=== PATIENT | female | born 1945 | race Caucasian/White ===

== ENCOUNTER 2025-02-05 14:31 | Emergency (ER) | payer OTHER, MEDICAID ==
[~2025-02-05] VITALS: Ht 167.6 cm; Wt 95.0 kg
[~2025-02-05 14:31] MED LIST: ALBU4TAB6 PO; AMLO10TA80 PO; APIX5TAB PO; ATOR-388 MT; BENZ100C86 PO; FURO40TA5 PO; GABA-290 MT; HYDR25TA78 PO; NORT50CA PO; OMEG-221 MT; OMEP20CA14 PO; POTA-205 MT; SITA1TAB6 PO; TELM80TA8 PO; TRAZ-251 PO
[2025-02-05 14:45] VITALS: O2SAT 98
[2025-02-05] MEDS: KETOROLAC 15MG/ML VIAL IV ONE (15:18)
[2025-02-05] MEDS: METOCLOPRAMIDE HCL 10MG/2ML VIAL IV ONE (15:19)
[2025-02-05] MEDS: FAMOTIDINE 20MG/2ML VIAL IV ONE (15:19)
[2025-02-05] MEDS: SODIUM CHLORIDE 0.9% 1,000 ML IV ONE (15:19)
[2025-02-05 15:25] LABS: BASOPHILS % 1.0 % (0.0-2.0); EOSINOPHILS % 1.2 % (0.0-5.0); HEMATOCRIT. 33.9 % (36.0-48.0); HEMOGLOBIN. 10.9 g/dL (12.0-16.0); LYMPHOCYTES % 33.9 % (20.0-50.0); MEAN PLATELET VOLUME 7.6 fl (7.4-10.4); MONOCYTES % 10.5 % (2.0-8.0); NEUTROPHILS % 53.4 % (40.0-76.0); PLATELET 326 x1000/uL (130-400); RED BLOOD CELL COUNT 3.91 mill/uL (4.2-5.4); RED CELL DISTRIBUTION WIDTH 14.9 % (11.6-14.6)
[2025-02-05 15:31] LABS: UREA NITROGEN BLOOD 27 mg/dL (9-23)
[2025-02-05 15:32] LABS: ASPARTATE AMINOTRANSFERASE 26 IU/L (<34); TROPONIN I HIGH SENSITIVITY 16 ng/L (3.0-34)
[2025-02-05 15:33] LABS: BILIRUBIN DIRECT < 0.1 mg/dL (<=3.0); BILIRUBIN TOTAL 0.2 mg/dL (0.1-1.0); PROTEIN TOTAL 7.1 g/dL (6.0-8.3)
[2025-02-05 15:44] LABS: CREATININE 1.8 mg/dL (0.6-1.0)
[2025-02-05 19:10] VITALS: BP 117/45; PULSE 83; RESP 16; TEMP 37; O2SAT 96
== END 2025-02-05 19:27 | disposition short-term general hospital (02) ==
LOC: ER 14:31
DX: I95.89 Other hypotension (principal); E05.90 Thyrotoxicosis, unspecified without thyrotoxic crisis or storm; E11.9 Type 2 diabetes mellitus without complications; I10 Essential (primary) hypertension; I48.91 Unspecified atrial fibrillation; Z79.01 Long term (current) use of anticoagulants; Z79.84 Long term (current) use of oral hypoglycemic drugs; Z79.899 Other long term (current) drug therapy; Z90.710 Acquired absence of both cervix and uterus
CPT/HCPCS: 99291; 74176; 96374; 96375; 96361; 80076; 80048; 83690; 85025; 84484; 36415; J1885; J1308; J2765; J7030